=== PATIENT | male | born 1995 | race Two or more races ===

== ENCOUNTER 2020-11-12 19:45 | Emergency (ER) | payer MEDICAID, OTHER ==
[~2020-11-12] VITALS: Ht 15.2 cm; Wt 90.7 kg
[2020-11-12 19:52] VITALS: BP 120/84
== END 2020-11-12 21:45 | disposition home or self-care (01) ==
LOC: ER 19:49
DX: S16.1XXA Strain of muscle, fascia and tendon at neck level, initial encounter (principal); S39.012A Strain of muscle, fascia and tendon of lower back, initial encounter; J45.909 Unspecified asthma, uncomplicated; V49.49XA Driver injured in collision with other motor vehicles in traffic accident, initial encounter; Y93.89 Activity, other specified; Y92.488 Other paved roadways as the place of occurrence of the external cause; Y99.8 Other external cause status
CPT/HCPCS: 72040; 72070; 72100

== ENCOUNTER 2020-11-29 19:51 | Emergency (ER) | payer MEDICAID ==
[~2020-11-29] VITALS: Ht 182.9 cm; Wt 90.7 kg
[2020-11-30] MEDS ORDERED: IBUPROFEN 800 MG TAB PO ONE (00:45)
[2020-11-30 00:51] VITALS: BP 106/78
== END 2020-11-30 01:06 | disposition home or self-care (01) ==
LOC: ER 19:52
DX: L02.31 Cutaneous abscess of buttock (principal); J45.909 Unspecified asthma, uncomplicated

== ENCOUNTER 2021-02-07 14:35 | Emergency (ER) | payer MEDICAID ==
[~2021-02-07] VITALS: Ht 182.9 cm; Wt 90.7 kg
[2021-02-07] MEDS ORDERED: IPRATROPIUM BROM 0.5 MG/2.5ML INH SOL NEB ONE ×2 (14:45→18:15)
[2021-02-07] MEDS ORDERED: predniSONE 20 MG TAB PO ONE (14:45)
[2021-02-07] MEDS ORDERED: ALBUTEROL SULF 2.5 MG/0.5ML(0.5%) NEB SOLN NEB ONE ×3 (14:45→18:15)
[2021-02-07 17:12] VITALS: BP 124/61
[2021-02-07] MEDS ORDERED: ALBUTEROL SULF 2.5 MG/0.5ML(0.5%) NEB SOLN ONE ×2 (17:25→18:06)
[2021-02-07] MEDS ORDERED: methylPREDNISolone SOD SUCC 125 MG/2 ML VL IM ONE (17:30)
== END 2021-02-07 18:57 | disposition home or self-care (01) ==
LOC: ER 14:35
DX: J45.901 Unspecified asthma with (acute) exacerbation (principal)
CPT/HCPCS: 94640; 96372; 99284; J2930; J7644

== ENCOUNTER 2021-09-17 20:26 | Emergency (ER) | payer MEDICAID ==
[~2021-09-17] VITALS: Ht 185.4 cm; Wt 86.2 kg
[2021-09-17 21:57] LABS: Basophils # (auto) 0 10 ^3/uL (0-0.2); Basophils % (auto) 0.2 % (0.0-2.0); Eosinophils # (auto) 0.2 10 ^3/uL (0-0.8); Eosinophils % (auto) 1.6 % (0.0-7.0); Hematocrit 47.4 % (41.0-53.0); Hemoglobin 15.7 g/dL (13.5-17.5); Lymphocytes # (auto) 2.5 10 ^3/uL (0.4-5.4); Lymphocytes % (auto) 26.7 % (10.0-50.0); Mean Corpuscular Hemoglobin 30.2 pg (28.0-32.0); Mean Corpuscular Hgb Conc. 33.1 g/dL (32.0-36.0); Mean Corpuscular Volume 91.1 fL (80.0-100.0); Monocytes # (auto) 0.6 10 ^3/uL (0-1.3); Monocytes % (auto) 6.5 % (0.0-12.0); Neutrophils # (auto) 6.1 10 ^3/uL (1.6-8.6); Nucleated Red Blood Cells % 0.1 %; Red Blood Cells 5.21 10^6/uL (4.5-5.90); Red Cell Distribution Width 13.3 % (11.8-14.3); White Blood Cell 9.5 10^3/uL (4.4-10.8)
[2021-09-17 22:17] LABS: Albumin 3.9 g/dL (3.4-5.0); BUN/Creatinine Ratio 13.6; Calcium 9.2 mg/dL (8.5-10.1); Potassium 4.1 mmol/L (3.5-5.1)
[2021-09-17 22:20] LABS: Bilirubin, Total 0.4 mg/dL (0.2-1.0); Total Protein 7.2 g/dL (6.4-8.2)
[2021-09-18] MEDS ORDERED: DICYCLOMINE HCL (10MG/ML) 2 ML AMPULE IM ONE (01:30)
[2021-09-18 02:01] VITALS: BP 131/71
== END 2021-09-18 02:02 | disposition home or self-care (01) ==
LOC: ER 20:26
DX: R10.13 Epigastric pain (principal); R11.2 Nausea with vomiting, unspecified; F12.10 Cannabis abuse, uncomplicated
CPT/HCPCS: 36415; 80053; 83690; 85025; 96372; 99283; J0500